=== PATIENT | female | born 1995 | race Caucasian/White ===

== ENCOUNTER → 2016-06-18 | Outpatient (CLI) | payer BC ==
[~2016-06-18] MED LIST: APRI1 EACH PO; FLUOXETINE HCL20 MG PO
== END | disposition home or self-care (01) ==
LOC: EKG 06-09 15:00 → AMB 06-11 15:00
DX: R55 Syncope and collapse (principal); R00.0 Tachycardia, unspecified; R00.2 Palpitations; Q23.1 Congenital insufficiency of aortic valve; I38 Endocarditis, valve unspecified; R93.1 Abnormal findings on diagnostic imaging of heart and coronary circulation; I35.9 Nonrheumatic aortic valve disorder, unspecified; I34.1 Nonrheumatic mitral (valve) prolapse; Z88.0 Allergy status to penicillin
CPT/HCPCS: 93312; J2250; J3010